=== PATIENT | female | born 1990 | race Caucasian/White ===

== ENCOUNTER 2017-04-14 06:17 | Inpatient (IN) ==
[2017-04-14 05:56] LABS: Hematocrit 38.3 % (35.3-44.9); Hemoglobin 13.1 g/dL (11.5-15.4); Mean Corpuscular HGB Conc 34.2 g/dL (31.6-35.5); Mean Corpuscular Volume 84.9 fL (83.0-100.0); Mean Platelet Volume 11.5 fL (9.4-12.4); Platelet Count 195 K/mcL (140-400); Red Blood Count 4.51 M/mcL (3.82-4.97); Red Cell Distribution Width 12.6 % (11.5-14.5)
[~2017-04-14 06:17] MED LIST: *HR* FentaNYL (PF) 100 MCG/2 ML VIAL ONE; *HR* Morphine Sulfate/PF 5 MG/10 ML AMPUL ONE; *HR* Oxytocin 10 UNIT/ML VIAL IM ONE; Famotidine 20 MG/2 ML VIAL IVP PRN; Metoclopramide 10 MG/2 ML VIAL IVP PRN; Ringers Solution, Lactated 1,000 ML IVC SCH; Ringers Solution, Lactated 1,000 ML ONE; ceFAZolin 2,000 MG in D5% in Water 100 ML IVPB ONE
[2017-04-14] MEDS ORDERED: Ringers Solution, Lactated 1,000 ML ONE (06:20)
[2017-04-14] MEDS ORDERED: EPHEDrine 50 MG/ML VIAL ONE (06:33)
--- NOTE | 2017-04-14 06:41 | Anesthesia Evaluation PreOp ---
Date of Encounter: 04/14/17 Time of Encounter: 06:00 - Past History Planned Operation: c section Cardiac History: Denies any Significant Hx Pulmonary History: Smoker, Pack/yr (10) COUNTRY SINGER History: Denies Any Significant HX Other Medical History: GERD Anesthesia History: No Prior Anesthetic Complications, Past Anesthesia (c/s x2) , Problems (none) : Yes Test: Positive Alcohol Use: unknown Drug use: marijuana (04/13), IVDU (heroin 04/13) Medications and Allergies No Known Home Drugs 04/14/17 [History] Allergies No Known Allergies Allergy (Verified 04/14/17 05:43) - Meds/Allergy Pre-op Review Medications Reviewed: Yes Allergies Reviewed: Yes Beta Blockers on Current Med List: No Anesthesia Results - Labs 04/14/17 05:48 Anesthesia Exam 140/85 113 16 fht 144 Height: 5'3" Weight: 48 NPO (# of Hours): 6 Pain Scale: 6 Pain Scale Used: Numeric (1 - 10) - HEENT Pupil (Motor): Pupils equal Mallampati: II Teeth: Poor dentition Oral Opening: Greater than 3 - COUNTRY SINGER LOC: Oriented COUNTRY SINGER Motor: Normal RUE, Normal LUE, Normal RLE, Normal LLE, Normal Face COUNTRY SINGER Sensory: Normal: RUE, LUE, RLE, LLE, Face - Cardiac Rhythm: Regular Murmur: None JVD: No - Pulmonary Breath Sounds: bilateral Clear Respiratory Effort: Symmetrical Anesthesia Assess/Plan ASA Score: 3 (smoker, IVDU, anxiety) Modified Marion Scale for Level of Consciousness: Cooperative, oriented, and tranquil Anesthetic Plan: Regional Autologous Blood: No Monitoring Plan: Standard Monitors Recovery Plan: PACU (risks disussed, questions answered, onsented)
[2017-04-14] MEDS ORDERED: *HR* FentaNYL (PF) 100 MCG/2 ML VIAL ONE ×4 (06:46→07:36)
--- NOTE | 2017-04-14 06:48 | Anesthesia Procedures ---
Date of Encounter: 04/14/17 Time of Encounter: 06:48 Procedures: Anesthesia - Epidural/Spinal Patient ID/Chart reviewed: Yes Patient examined: Yes OB Eval: Gestational age: 39 OB Eval: : 3 OB Eval: Hx Para: 2 OB Eval: Dilated at (cm): 0 OB Eval: Contractions: Non-stressed pattern Consent Obtained: Yes Supplemental Oxygen: Nasal Cannula Supplemental Oxygen Rate (L/min): 3 Site Prep: Aseptic Technique, Sterile prep and drape, 0.5% Chlorhexidine/Alcohol Patient position: upright Local Anesthetic: Lidocaine 1% Amount of Local Anesthetic used: 3 Interspace Used: L2-L3 Loss of Resistance (DALE): No Blood: No CSF: Yes Paresthesia: No Spinal Needle Gauge: 25 Spinal Dose: marcaine 12mg duramorph 2, fentanyl 10 mcg
[2017-04-14] MEDS ORDERED: Nitroglycerin Spray 4.9 GM BOTTLE ONE (06:59)
[2017-04-14] MEDS ORDERED: *HR* Midazolam HCl 2 MG/2 ML VIAL ONE (07:09)
[2017-04-14] MEDS ORDERED: *HR* HYDROmorphone (PF) 1 MG/ML SYRINGE IVP PRN (07:29)
[2017-04-14] MEDS ORDERED: *HR* Promethazine 25 MG/ML VIAL IVP PRN (07:29)
[2017-04-14] MEDS ORDERED: Ondansetron 4 MG/2 ML VIAL IVP ONE (07:29)
[2017-04-14] MEDS ORDERED: *HR* FentaNYL (PF) 250 MCG/5 ML VIAL ONE (07:39)
[2017-04-14] MEDS ORDERED: Ketorolac 30 MG/ML VIAL ONE (07:42)
--- NOTE | 2017-04-14 07:44 | OB/GYN History & Physical ---
Date of Encounter: 04/14/17 Time of Encounter: 07:44 Assessment and Plan (1) Status post repeat low transverse section Current visit: Yes Status: Acute after discussing with the patient, we will be proceeding to C/S, Anesthesia informed, labs drawn, consent signed History of Present Illness HPI: Ms. Paredes is a 26 year old female @ 40+1 weeks with limited care and h/o 2 prior C/S for failed IOL who presented to L and D with complaints of ctxs. No LOF, VB, feels good FM. Patient placed on the monitor and found to be aparna every 2-3 mins. Her cervix was checked and closed. Records reviewed and found that she has only seen a physician once. She reports to using drugs this . Past Med Surg Social Fam HX - Past Medical History Medical history: no medical history Psychiatric history: no psych history - Past Surgical History Surgical History: - Social History Smoking Status: Current every day smoker Packs per day: 1 Smokeless Tobacco Status: No Alcohol use: unknown Drug use: marijuana (04/13), IVDU (heroin 04/13) - Family History Mother Age: 46 Living Status: Still Living Hx Family Cardiac Disorders: No Hx Family Respiratory Disorders: No Hx Family Cancer: No Hx Family GI Disorders: No Hx Family Genitourinary Disorders: No Hx Family Endocrine Disorder: No Hx Family Musculoskeletal Disorders: No Hx Family Neuromuscular Disorders: No Hx Family Neurologic Disorders: No Hx Family HEENT Disorders: No Hx Family Autoimmune Disorders: No Hx Family Reproductive Disorders: No Hx Family Psychosocial Disorders: No Hx Family Medical Disorders: No Obstetrical History - Pregnancies : 4 Medications and Allergies No Known Home Drugs 04/14/17 [History] Allergies No Known Allergies Allergy (Verified 04/14/17 05:43) Review of System OB All systems PM: reviewed and no additional remarkable complaints except as stated Exam - Vital Signs Vital signs: Initial Vital Signs Temp Pulse Resp BP 97.6 F 65 16 140/85 04/14/17 05:35 04/14/17 05:35 04/14/17 05:35 04/14/17 05:35 - Constitutional Constitutional: well developed - HEENT HEENT: Normocephaly - Neck Neck exam: full ROM - Lungs Respiratory exam: CTAB - Cardiovascular Cardiovascular exam: RRR - Abdomen Abdomen: Present: gravid Results Result Diagrams: 04/14/17 05:48 All other labs normal.
--- NOTE | 2017-04-14 07:47 | OB/GYN Procedure Note ---
Section - Date of procedure: 04/14/17 Preop diagnosis: desires repeat Post-op diagnosis: same Procedure: section, repeat low transverse Surgeon: Darnell Lovell Estimated blood loss (cc): 250 Anesthesia Type: General section complications: none Disposition: L&D Recovery Room Specimens: Placenta, Cord blood - Infant (s) Infant A Delivery Date: 04/14/17 Delivery Time: 06:55 Presentation: vertex Gender: Male Viability: Viable Gram Weight: 2350 kg at 1 minute: 8 at 5 minutes: 8 Placenta: complete extraction Cord: nuchal cord - Narrative Narrative: After informed consent was obtained, the patient was brought back to the operative suite where adequate spinal anesthesia was obtained. The patient was then placed in the dorsal supine position and prepped and draped in the sterile fashion. A repeat Pfannenstiel skin incision was made with a blade and carried down through the subcutaneous tissues to the fascia, which was extended in the transverse fascia with Escobar scissors. The fascial incision was then dissected off the rectus muscles both bluntly and sharply. The rectus muscle was in the midline. The peritoneum was entered bluntly. The peritoneal incision was then extended both superiorly and inferiorly with good visualization of the underlying bowel and bladder. The bladder blade was placed , and the vesicouterine fascia was incised to create a bladder flap in a low transverse position. This was developed digitally. A low transverse uterine incision was made with the blade and carried down through the layers of the uterus until membranes bulged through the incision. The uterine incision was then extended digitally. Hand was placed inside the pelvis, and the head was brought up out of the pelvis and delivered atraumatically with gentle fundal pressure. Meconium was noted. The cord was clamped, cut and infant handed over to the nurse. Cord blood was obtained. The placenta was then manually extracted, and the uterus was exteriorized. The uterus was cleaned of remaining clot. The uterine incision was readily identified and closed in two layers, first one with running locking followed by second imbricating layer of 0 Vicryl. The uterus was placed back inside the pelvis. The fascia was closed with O-Vicryl from one angle to the next. The incision was then reapproximated with 4-0 vicryl.
[2017-04-14] MEDS ORDERED: *HR* HYDROmorphone (PF) 1 MG/ML SYRINGE ONE ×6 (07:48→09:07)
[2017-04-14] MEDS ORDERED: Oxytocin 20 units/ LR 1000 mL 20 UNIT/1,000 ML BAG IVC ONE (07:55)
[2017-04-14] MEDS ORDERED: Sennosides 8.6 MG TABLET PO PRN (08:30)
[2017-04-14] MEDS ORDERED: Metoclopramide 10 MG/2 ML VIAL IVP PRN (08:30)
[2017-04-14] MEDS ORDERED: Ondansetron 4 MG/2 ML VIAL IVP PRN (08:30)
[2017-04-14] MEDS ORDERED: *HR* Meperidine 50 MG/ML SYRINGE IM ONE (08:40)
[2017-04-14] MEDS ORDERED: *HR* Morphine Sulfate/PF 5 MG/10 ML AMPUL ONE (08:40)
[2017-04-14] MEDS ORDERED: Acetaminophen IV 1,000 MG/100 ML INFUS..BTL IVPB ONE ×2 (08:53→17:00)
[2017-04-14] MEDS ORDERED: Naloxone 0.4 MG/ML INJ IVP PRN (08:57)
[2017-04-14 09:28] LABS: Amphetamine Screen,Urine Negative ng/mL (Cutoff=1000); Barbiturate Screen,Urine Negative ng/mL (Cutoff=200); Benzodiazepines Screen,Urine Negative ng/mL (Cutoff=200); Cannabinoid Screen,Urine Positive ng/mL (Cutoff = 50); Cocaine Screen,Urine Positive ng/mL (Cutoff= 300); Opiate Screen,Urine Positive ng/mL (Cutoff=300); Phencyclidine Screen,Urine Negative ng/mL (Cutoff=25)
[2017-04-14 09:51] LABS: Hepatitis B Surface Antigen Nonreactive (Nonreactive)
--- NOTE | 2017-04-14 10:31 | Anesthesia Evaluation Post Op ---
Date of Encounter: 04/14/17 Time of Encounter: 10:32 - Vital Signs Vital Signs: vss - Lungs Lungs: Clear Ascult./Percussion - Airway Airway: Non-obstructed - Cardiovascular Baseline Rhythm - Mental Status Mental Status: Alert & Oriented, Answers Appropriately - Pain Pain Scale used: Boo (Faces) (no active distress noted,) - Nausea Vomiting Nausea Vomiting: Not Present - Hydration Hydration: Tolerates oral liquids, Ice chips - Discharge PostOp Status: Transfer Patient to floor
[2017-04-14] MEDS: *HR* HYDROmorphone 20 MG/20 ML PCA IVC PRN (11:01)
[2017-04-14] MEDS: Oxytocin 20 units/ LR 1000 mL 20 UNIT/1,000 ML BAG IVC SCH (11:10)
[2017-04-14] MEDS: Gabapentin 400 MG CAPSULE PO SCH (18:39)
[2017-04-14] MEDS: Ibuprofen 600 MG TABLET PO PRN (20:11)
[2017-04-14] MEDS: Acetaminophen IV 1,000 MG/100 ML INFUS..BTL IVPB SCH (20:13)
[2017-04-14] MEDS: *HR* OxyCODONE/APAP 5/325 TABLET PO PRN (23:47)
[2017-04-15] MEDS ORDERED: Acetaminophen IV 1,000 MG/100 ML INFUS..BTL IVPB ONE (01:00)
[2017-04-15] MEDS: Oxytocin 20 units/ LR 1000 mL 20 UNIT/1,000 ML BAG IVC SCH (02:11)
[2017-04-15] MEDS: Ibuprofen 600 MG TABLET PO PRN ×3 (02:12→20:29)
[2017-04-15] MEDS: *HR* HYDROmorphone 20 MG/20 ML PCA IVC PRN (04:04)
[2017-04-15] MEDS: Acetaminophen IV 1,000 MG/100 ML INFUS..BTL IVPB SCH (04:20)
[2017-04-15] MEDS: Simethicone 80 MG TAB.CHEW PO PRN (04:45)
[2017-04-15 05:00] LABS: Basophils % 0.3 %; Eosinophils # 0.4 K/mcL (0.0-0.6); Hematocrit 32.7 % (35.3-44.9); Immature Granulocytes % 0.2 % (0-4); Lymphocytes # 2.9 K/mcL (0.6-4.6); Lymphocytes % 31.2 %; Mean Corpuscular HGB Conc 34.3 g/dL (31.6-35.5); Mean Corpuscular Hemoglobin 29.2 pg (28.0-33.3); Mean Corpuscular Volume 85.2 fL (83.0-100.0); Mean Platelet Volume 10.8 fL (9.4-12.4); Monocytes # 0.6 K/mcL (0.0-1.3); Monocytes % 6.6 %; Neutrophils # 5.4 K/mcL (1.6-8.9); Platelet Count 157 K/mcL (140-400); Red Blood Count 3.84 M/mcL (3.82-4.97); Red Cell Distribution Width 12.7 % (11.5-14.5); Segmented Neutrophils % 57.7 %
[2017-04-15 05:04] LABS: Hemoglobin 11.2 g/dL (11.5-15.4)
[2017-04-15] MEDS: *HR* OxyCODONE/APAP 5/325 TABLET PO PRN (06:43)
[2017-04-15] MEDS ORDERED: Rho Immune Globulin 1,500 UNIT SYRINGE IM ONE (07:30)
--- NOTE | 2017-04-15 08:02 | OB/GYN Progress Note ---
Date of Encounter: 04/15/17 Time of Encounter: 08:00 - Assessment and Plan (1) Polysubstance abuse Current Visit: Yes Status: Acute Discontinue IV when voiding without difficulty (2) Status post repeat low transverse section Current Visit: Yes Status: Acute Continue routine care continute postop care discontinue DESIGN TEACHER and convert to PO medication Subjective - Subjective Principal diagnosis: Postop/ day 1 repeat c/s Interval history: Patient sitting up in bed. Patient eating regular diet. Anne catheter removed. Patient has not been up to bathroom yet. Will discontinue DESIGN TEACHER and start PO medication for pain. After patient voids will discontinue IV. Patient reports: appetite normal, ambulating normally : doing well, bottle feeding Objective - Vital Signs Latest vital signs: Vital Signs Temp Pulse Pulse Resp BP Pulse Ox 04/15/17 05:10 89 92 04/15/17 03:58 98.3 F 76 16 126/82 91 04/15/17 01:43 75 93 04/14/17 23:50 16 04/14/17 23:25 97.7 F 75 16 125/73 96 04/14/17 19:45 14 04/14/17 19:34 98.5 F 70 14 127/82 96 04/14/17 16:00 98.5 F 74 16 128/87 96 04/14/17 13:25 14 04/14/17 13:15 98.1 F 75 14 129/82 98 04/14/17 12:15 97.9 F 64 18 125/80 97 04/14/17 11:15 97.6 F 64 60 18 152/92 98 04/14/17 10:50 97 04/14/17 10:45 97.7 F 69 14 138/91 97 04/14/17 10:15 97.6 F 64 14 140/91 98 Intake and Output 04/14/17 04/15/17 04/15/17 23:59 07:59 15:59 Intake Total 1060 / 1060 100 / 100 Output Total 400 / 400 1165 / 1165 Balance 660 / 660 -1065 / -1065 Intake: IV Fluids 1060 / 1060 100 / 100 Pitocin 20 unit In 1,000 960 / 960 ml @ 125 mls/hr IVC .Q8H [facility] Rx#:[id number] Ofirmev 1,000 mg/100 ml 1 100 / 100 100 / 100 ,000 mg In 100 ml @ 400 mls/hr IVPB Q8H [facility] Rx#: [id number] Oral 0 / 0 0 / 0 Output: Catheter 400 / 400 1165 / 1165 Other: Meal Dinner Percent of Meal Consumed 0% Weight 54.3 kg Patient Weight 04/15/17 23:59 Weight 54.3 kg - Exam Lungs: left: wheezes Chest: Normal S1, Normal S2 Extremities: Present: normal Abdomen: Present: normal appearance, soft Incision: Present: normal, dry, intact Uterus: Present: normal, firm Fundal Height: 1 (U/1) - Labs Labs: Laboratory Results - last 24 hr 04/14/17 04/14/17 04/14/17 05:48 07:52 09:14 WBC RBC Hgb Hct MCV MCH MCHC RDW Plt Count MPV Immature Gran % Seg Neutrophils % Lymphocytes % Monocytes % Eosinophils % Basophils % Neutrophils # Lymphocytes # Monocytes # Eosinophils # Basophils # Urine Opiates Screen Positive H Ur Barbiturates Screen Negative Ur Phencyclidine Scrn Negative Ur Amphetamines Screen Negative U Benzodiazepines Scrn Negative Urine Cocaine Screen Positive H U Marijuana (THC) Screen Positive H Hep Bs Antigen Nonreactive Screen NEGATIVE Baby's Blood Type O RH POSITIVE Mother's Blood Type O RH NEGATIVE Rhogam Indicated YES Rhogam Req for Mother 1 04/15/17 04:51 WBC 9.3 RBC 3.84 Hgb 11.2 L D Hct 32.7 L MCV 85.2 MCH 29.2 MCHC 34.3 RDW 12.7 Plt Count 157 MPV 10.8 Immature Gran % 0.2 Seg Neutrophils % 57.7 Lymphocytes % 31.2 Monocytes % 6.6 Eosinophils % 4.0 Basophils % 0.3 Neutrophils # 5.4 Lymphocytes # 2.9 Monocytes # 0.6 Eosinophils # 0.4 Basophils # 0.0 Urine Opiates Screen Ur Barbiturates Screen Ur Phencyclidine Scrn Ur Amphetamines Screen U Benzodiazepines Scrn Urine Cocaine Screen U Marijuana (THC) Screen Hep Bs Antigen Screen Baby's Blood Type Mother's Blood Type Rhogam Indicated Rhogam Req for Mother
[2017-04-15] MEDS: Prenatal Vit/FA 1 EACH TABLET PO SCH (08:30)
[2017-04-15] MEDS: Gabapentin 400 MG CAPSULE PO SCH ×3 (08:31→20:28)
[2017-04-15 10:27] LABS: Varicella Zoster IgG Antibody Positive
[2017-04-15 10:29] LABS: Rubella IgG Antibody POSITIVE (POSITIVE)
[2017-04-15] MEDS: *HR* OxyCODONE/APAP 10/325 TABLET PO PRN ×3 (11:00→20:30)
[2017-04-15 11:08] LABS: HIV-1&2 Antibody & p24 Ag Nonreactive (Nonreactive)
[2017-04-16] MEDS: *HR* OxyCODONE/APAP 10/325 TABLET PO PRN ×2 (00:47→04:35)
[2017-04-16] MEDS: Ibuprofen 600 MG TABLET PO PRN (04:34)
[2017-04-16 08:11] VITALS: BP 121/79
[2017-04-16] MEDS: Simethicone 80 MG TAB.CHEW PO PRN (09:07)
[2017-04-16] MEDS: Prenatal Vit/FA 1 EACH TABLET PO SCH (09:07)
[2017-04-16] MEDS: Gabapentin 400 MG CAPSULE PO SCH (09:08)
--- NOTE | 2017-04-16 09:23 | Discharge Summary ---
Date of Encounter: 04/16/17 Time of Encounter: 09:19 - Discharge Diagnosis (1) Polysubstance abuse Priority: Primary Status: Acute Comments: OARRS report reviewed (2) Status post repeat low transverse section Priority: Primary Status: Acute Comments: S/P Day 2 RLTC/S. Patient states pain is well controlled Lochia is light and without clots Denies headache, vision changes, epigastric pain Voiding normally, passing flatus, normal appetite Patient is bottle feeding; infant is in special care nursery due to polypharmacy substance abuse. She would like to discharge home today, declines guesting policy - Discharge Medications Prescriptions: Ibuprofen [Motrin] 600 mg PO Q6HR PRN #60 tablet PRN Reason: Cramping OxyCODONE/APAP 10/325 [Percocet 10/325 MG] 2 each PO Q6HR PRN #80 tablet PRN Reason: Severe Pain Docusate [Colace] 100 mg PO BID #20 capsule Home Medications: Docusate [Colace] 100 mg PO BID #20 capsule 04/16/17 [Rx] Gabapentin [Neurontin] 800 mg PO TID capsule 04/16/17 [Rx] Ibuprofen [Motrin] 600 mg PO Q6HR PRN #60 tablet 04/16/17 [Rx] OxyCODONE/APAP 10/325 [Percocet 10/325 MG] 2 each PO Q6HR PRN #80 tablet [Rx] Vit/FA 1 each PO DAILY tablet 04/16/17 [Rx] Simethicone [Gas-X] 80 mg PO TID PRN #0 tab.chew 04/16/17 [Rx] Allergies/Adverse Reactions: Allergies No Known Allergies Allergy (Verified 04/14/17 05:43) Data Procedures and tests throughout hospitalization: Laboratory Tests 04/14/17 04/14/17 04/14/17 05:48 05:48 05:48 WBC RBC Hgb Hct MCV MCH MCHC RDW Plt Count MPV Immature Gran % Seg Neutrophils % Lymphocytes % Monocytes % Eosinophils % Basophils % Neutrophils # Lymphocytes # Monocytes # Eosinophils # Basophils # Urine Opiates Screen Ur Barbiturates Screen Ur Phencyclidine Scrn Ur Amphetamines Screen U Benzodiazepines Scrn Urine Cocaine Screen U Marijuana (THC) Screen T.pallidum Ab Interpret NEGATIVE Hep Bs Antigen Nonreactive HIV Ag/Ab Combo Qual Nonreactive Rubella IgG Antibody POSITIVE VZV IgG Antibody Positive Blood Type O NEGATIVE Screen Baby's Blood Type Mother's Blood Type Rhogam Indicated Rhogam Req for Mother 04/14/17 04/14/17 04/14/17 05:48 07:52 09:14 WBC 8.8 RBC 4.51 Hgb 13.1 Hct 38.3 MCV 84.9 MCH 29.0 MCHC 34.2 RDW 12.6 Plt Count 195 MPV 11.5 Immature Gran % Seg Neutrophils % Lymphocytes % Monocytes % Eosinophils % Basophils % Neutrophils # Lymphocytes # Monocytes # Eosinophils # Basophils # Urine Opiates Screen Positive H Ur Barbiturates Screen Negative Ur Phencyclidine Scrn Negative Ur Amphetamines Screen Negative U Benzodiazepines Scrn Negative Urine Cocaine Screen Positive H U Marijuana (THC) Screen Positive H T.pallidum Ab Interpret Hep Bs Antigen HIV Ag/Ab Combo Qual Rubella IgG Antibody VZV IgG Antibody Blood Type Screen NEGATIVE Baby's Blood Type O RH POSITIVE Mother's Blood Type O RH NEGATIVE Rhogam Indicated YES Rhogam Req for Mother 1 04/15/17 04:51 WBC 9.3 RBC 3.84 Hgb 11.2 L D Hct 32.7 L MCV 85.2 MCH 29.2 MCHC 34.3 RDW 12.7 Plt Count 157 MPV 10.8 Immature Gran % 0.2 Seg Neutrophils % 57.7 Lymphocytes % 31.2 Monocytes % 6.6 Eosinophils % 4.0 Basophils % 0.3 Neutrophils # 5.4 Lymphocytes # 2.9 Monocytes # 0.6 Eosinophils # 0.4 Basophils # 0.0 Urine Opiates Screen Ur Barbiturates Screen Ur Phencyclidine Scrn Ur Amphetamines Screen U Benzodiazepines Scrn Urine Cocaine Screen U Marijuana (THC) Screen T.pallidum Ab Interpret Hep Bs Antigen HIV Ag/Ab Combo Qual Rubella IgG Antibody VZV IgG Antibody Blood Type Screen Baby's Blood Type Mother's Blood Type Rhogam Indicated Rhogam Req for Mother Labs on day of discharge: Labs from last 24 hours 04/14/17 04/14/17 05:48 05:48 T.pallidum Ab Interpret NEGATIVE HIV Ag/Ab Combo Qual Nonreactive Rubella IgG Antibody POSITIVE VZV IgG Antibody Positive Date of admission: 04/14/17 06:17 Primary care physician: Myra Olson Consults: 04/14/17 05:53 Consult to Arc Welder (W&C) [CONS] Stat Reason For Exam: Reason for SW Consult: drug use during , homeless Discharging clinician: Bijal Reed Anticipated date of discharge: 04/16/17 - Patient Status Disposition: Home, Self-Care Condition: Good Functional capacity at discharge: independent ambulation Overall status at discharge: patient is progressing back to baseline - Discharge Instructions Follow Up With: Myra Olson CNP [Primary Care Provider] - Bijal Reed CNM [Advanced Practice Nurse] - - Diet and Activity Activity: increase activity as tolerated Diet: regular diet Hospital Course Reason for admission: active labor, section, IUP at term Delivery: section Laceration: none Other procedures: none complications: none Discharge diagnosis: IUP at term delivered Gypsy baby: male Time spent discussing smoking cessation with patient: 3 to 10 minutes Time Attestation: Total time spent providing and/or coordinating discharge services: Time Spent: Less than 30 minutes - VTE Documentation of Mechanical Device: Intermittent pneumatic compression device Exam - Constitutional Vitals: Temp Pulse Resp BP Pulse Ox 98.1 F 70 18 121/79 97 04/16/17 07:55 04/16/17 07:55 04/16/17 07:55 04/16/17 07:55 04/16/17 07:55 General appearance IM: cooperative, A&O X 3, pleasant - Respiratory Respiratory exam: Present: CTAB - Cardiovascular Cardiovascular exam IM: Present: RRR, +S1, +S2 - GI/Abdominal GI/Abdominal exam IM: normal bowel sounds, soft Incision: normal, dry (steri-strips present. ), intact - Rectal Rectal exam: deferred - Uterine Tone: Firm Uterus Position: At Umbilicus, Midline - Extremities Exam Extremities exam IM: Present: normal capillary refill, normal inspection, radial pulses palpable and symetrical - Neurological Exam Neurological exam: alert, oriented X3
== END 2017-04-16 12:30 | disposition home or self-care (01) | DRG 540 ==
LOC: 1NENULAB → 1NENUOBS 10:42
PROVIDERS: ADMIT Student in an Organized Health Care Education/Training Program; ATTEND Student in an Organized Health Care Education/Training Program